=== PATIENT | female | born 1995 | race Caucasian/White ===

== ENCOUNTER 2017-02-09 22:50 | Emergency (ER) | payer BC, OTHER ==
[~2017-02-09] VITALS: Ht 149.9 cm; Wt 87.9 kg
[2017-02-09 22:50] VITALS: BP 144/83
--- NOTE | 2017-02-09 22:56 | ED.ADGEN ---
Adult General Chief Complaint Chief Complaint " I am having some back pain..." " I ve had scoliosis and surgery for it when I was 16..." HPI HPI Patient is a 21 year old female who presents with above hx and complaints continue mid back pain after fall on stairs 1 week ago. Pt., has chronic back pain from scoliosis surgery ate 16. Pt. has some dysuria. Pt. denies any fever or chills. No travel or ill contacts. No hx of immunosuppression. No hx cancer. No hx IV drug use. Review of Systems Review of Systems Constitutional: Denies fever or chills [] Eyes: Denies change in visual acuity, redness, or eye pain [] HENT: Denies nasal congestion or sore throat [] Respiratory: Denies cough or shortness of breath [] Cardiovascular: No additional information not addressed in HPI [] GI: Denies abdominal pain, nausea, vomiting, bloody stools or diarrhea [] : some dysuria Musculoskeletal:Hx chronic back pain or joint pain [] Integument: Denies rash or skin lesions [] Neurologic: Denies headache, focal weakness or sensory changes [] Endocrine: Denies polyuria or polydipsia [] All other systems were reviewed and found to be within normal limits, except as documented in this note. Family History Family History Non contributory Current Medications Current Medications Current Medications Medications (Trade) Dose Ordered Sig/[place] Start Time Stop Time Status Last Admin Dose Admin Cephalexin HCl (Keflex) 500 mg 1X ONCE 02/10/17 02:00 02/10/17 02:00 DC 02/10/17 01:43 500 MG Ketorolac Tromethamine (Toradol) 60 mg 1X ONCE 02/10/17 00:00 02/10/17 00:01 DC 02/10/17 00:14 60 MG Methylprednisolone Acetate (DEPO-Medrol IM) 40 mg 1X ONCE 02/10/17 00:00 02/10/17 00:01 DC 02/10/17 00:11 40 MG Orphenadrine Citrate (Norflex) 60 mg 1X ONCE 02/10/17 00:00 02/10/17 00:01 DC 02/10/17 00:16 60 MG Oxycodone/ Acetaminophen (Percocet 10/325) 1 tab 1X ONCE 02/10/17 00:00 02/10/17 00:01 DC 02/10/17 00:10 1 TAB See Nursing for home meds Allergies Allergies Allergies Coded Allergies Type Severity Reaction Last Updated Verified No Known Drug Allergies 02/09/17 No Physical Exam Physical Exam Constitutional: Well developed, well nourished, in moderate distress, non- toxic appearance. [] HENT: Normocephalic, atraumatic, bilateral external ears normal, oropharynx moist, no oral exudates, nose normal. [] Eyes: PERRLA, EOMI, conjunctiva normal, no discharge. [] Neck: Normal range of motion, no tenderness, supple, no stridor. [] Cardiovascular:Heart rate regular rhythm, no murmur [] Lungs & Thorax: Bilateral breath sounds equal at apexes on auscultation [] Abdomen: Bowel sounds normal, soft, no tenderness, no masses, no pulsatile masses. [] No saddle loss reported. Skin: Warm, dry, no erythema, no rash. [] Back:midline scar and flank tenderness, no CVA tenderness. [] Extremities: No tenderness, no cyanosis, no clubbing, ROM intact, no edema. [] Neurologic: Alert and oriented X 3, normal motor function, normal sensory function, no focal deficits noted. DTR +2 patella. Psychologic: Affect normal, judgement normal, mood normal. [] Current Patient Data Lab Results Laboratory Tests Test 02/09/17 23:02 02/10/17 00:33 Urine Collection Type Unknown Urine Color Yellow Urine Clarity Hazy Urine pH 6.0 Urine Specific [place] >=1.030 Urine Protein 30 mg/dl (NEG-TRACE) Urine Glucose (UA) Neg mg/dL (NEG) Urine Ketones (Stick) Trace mg/dL (NEG) Urine Blood Mod (NEG) Urine Nitrite Neg (NEG) Urine Bilirubin Neg (NEG) Urine Urobilinogen Dipstick 0.2 mg/dL (0.2 mg/dL) Urine Leukocyte Esterase Trace (NEG) Urine RBC 6-10 /HPF (0-2) Urine WBC 1-4 /HPF (0-4) Urine Squamous Epithelial Cells Many /LPF Urine Bacteria Few /HPF (0-FEW) POC Urine HCG, Qualitative hcg negative (Negative) EKG EKG [] Radiology/Procedures Radiology/Procedures My interpretation of thoracic, lumbar and sacral film shows extensive hardware. But no obvious fracture or dislocation or fracture or hardware.[] Course & Med Decision Making Course & Med Decision Making Pertinent Labs and Imaging studies reviewed. (See chart for details). Push vitamin C drinks. Take Keflex 500 x3 times a day.x7 days. Follow-up primary. re check urine. Return if any concerns. [] Final Impression Final Impression 1. Back Pain[] Acute on chronic 2. UTI Problems: Dragon Disclaimer Dragon Disclaimer This electronic medical record was generated, in whole or in part, using a voice recognition dictation system. RAY RUIZ MD Feb 09, 2017 22:56
[2017-02-10] MEDS ORDERED: methylPREDNISolone ACETATE 40 MG/ML VIAL. IM ONE
[2017-02-10] MEDS ORDERED: ORPHENADRINE CITRATE 60 MG/2 ML VIAL. IM ONE
[2017-02-10] MEDS ORDERED: oxyCODONE/APAP 10/325 1 TAB TABLET PO ONE
[2017-02-10] MEDS ORDERED: KETOROLAC 60 MG/2 ML VIAL. IM ONE
[2017-02-10 01:30] LABS: CLARITY,URINE HAZY; COLOR,URINE YELLOW
[2017-02-10 01:31] LABS: BACTERIA,URINE FEW /HPF (0-FEW); BILIRUBIN,URINE NEG (NEG); GLUCOSE,URINE NEG (NEG); NITRITE,URINE NEG (NEG); SQUAMOUS EPITHELIAL CELL,UR MANY /LPF; UROBILINOGEN,URINE 0.2 mg/dL (0.2 mg/dL)
[2017-02-10] MEDS ORDERED: CEPH-264 PO (01:38)
[2017-02-10] MEDS ORDERED: FLUC150T PO (01:38)
[2017-02-10] MEDS ORDERED: HYDR-79 PO (01:38)
[2017-02-10] MEDS ORDERED: CEPHALEXIN 250 MG CAPSULE PO ONE (02:00)
--- NOTE | 2017-02-10 07:23 | RAD ---
Indication: Back pain, fall downstairs. Technique: 3 views of the lumbosacral spine are submitted for review. No comparison is available. Findings: There is fusion within the included lower thoracic spine to the level of L3. There is no perihardware lucency. There is 6 mm of retrolisthesis at L3-L4. There is otherwise no malalignment. There is no evidence of an acute fracture, vertebral body height is maintained. There is probably minimal endplate degenerative change at L3-L4. Alignment appears markedly improved from a 2011 study. Impression: No evidence of an acute fracture or traumatic malalignment.
--- NOTE | 2017-02-10 07:25 | RAD ---
Indication: Pain after fall downstairs. Technique: 3 views of the thoracic spine are submitted for review. No comparison is available. Findings: Spinal instrumentation extends from T3 to the lumbar spine. Pedicle screws begin at T4. Hardware appears well seated. There is no perihardware lucency. Alignment appears improved from a 2011 study. There is no evidence of an acute fracture or traumatic malalignment. Impression: Extensive postsurgical change related to the patient's scoliosis. No evidence of an acute fracture or dislocation.
== END 2017-02-10 01:46 | disposition home or self-care (01) ==
LOC: ER 22:50
DX: M54.89 Other dorsalgia (principal); G89.29 Other chronic pain; N39.0 Urinary tract infection, site not specified; W10.8XXA Fall (on) (from) other stairs and steps, initial encounter; Y93.89 Activity, other specified; Y99.8 Other external cause status; Y92.89 Other specified places as the place of occurrence of the external cause
CPT/HCPCS: 72072; 72100; 81001; 81025; 87086; 96372; 99285; J1030; J1885; J2360

== ENCOUNTER 2017-02-15 15:54 | Inpatient (IN) | payer BC ==
[~2017-02-15] VITALS: Ht 149.9 cm; Wt 89.4 kg
[~2017-02-15 15:54] MED LIST: CEPH-264 PO; FLUC150T PO; HYDR-79 PO
[2017-02-15] MEDS ORDERED: ONDANSETRON PF 4 MG/2 ML VIAL. IV ONE ×2 (17:00→20:15)
[2017-02-15] MEDS ORDERED: IV NORMAL SALINE 1,000ML 1,000 ML IV SCH (17:00)
[2017-02-15 17:09] LABS: BASO # 0.1 x10^3/uL (0.0-0.2); BASO % 0 % (0-3); EOS # 0.1 x10^3/uL (0.0-0.7); EOS % 0 % (0-3); HEMATOCRIT 41.1 % (36.0-47.0); HEMOGLOBIN 13.5 g/dL (12.0-15.5); LYMPH # 0.7 x10^3/uL (1.0-4.8); LYMPH % 4 % (24-48); MEAN CORPUSCULAR HEMOGLOBIN 27 pg (25-35); MEAN CORPUSCULAR HGB CONC 33 g/dL (31-37); MEAN CORPUSCULAR VOLUME 83 fL (79-100); MONO # 0.6 x10^3/uL (0.0-1.1); MONO % 3 % (0-9); NEUT # 18.9 x10^3uL (1.8-7.7); NEUT % 93 % (31-73); PLATELET COUNT 295 x10^3/uL (140-400); RED BLOOD COUNT 4.98 x10^6/uL (3.50-5.40); RED CELL DISTRIBUTION WIDTH 14.4 % (11.5-14.5); WHITE BLOOD COUNT 20.3 x10^3/uL (4.0-11.0)
[2017-02-15 17:24] LABS: ALBUMIN 3.5 g/dL (3.4-5.0); ALBUMIN/GLOBULIN RATIO 0.8 (1.0-1.7); CALCIUM 8.5 mg/dL (8.5-10.1); CREATININE 0.6 mg/dL (0.6-1.0); GFR 128.8; POTASSIUM 3.8 mmol/L (3.5-5.1); TOTAL BILIRUBIN 0.4 mg/dL (0.2-1.0); TOTAL PROTEIN 7.8 g/dL (6.4-8.2)
--- NOTE | 2017-02-15 17:37 | RAD ---
Limited abdominal ultrasound February 15, 2017 INDICATION: Right upper quadrant abdominal pain. COMPARISON: None available TECHNIQUE: Multiple sonographic images of the right upper quadrant were obtained utilizing grayscale and color Doppler. FINDINGS: Abdominal aorta is normal in course and caliber. IVC is patent. Liver is homogeneous in echotexture without evidence for a focal mass lesion. Liver measures 15.2 cm. There is no suspicious hepatic mass. Common bile duct is normal in size measuring 3 mm. No intrahepatic or extrahepatic biliary ductal dilatation. There is hepatopedal flow within the portal venous system. There is no free fluid in the abdomen. Gallbladder is normal in appearance without evidence for gallstones, gallbladder wall thickening or pericholecystic fluid. Positive sonographic Myers sign is noted. The right kidney measures 11.9 x 4.9 x 4.4 cm. Pancreas is poorly visualized. IMPRESSION: No evidence for cholelithiasis. Positive sonographic Myers sign is nonspecific without gallstones, gallbladder wall thickening or pericholecystic fluid. Electronically signed by: Lizbeth Hightower MD (02/15/2017 5:33 PM) [facility]
--- NOTE | 2017-02-15 17:46 | PHYS DOC ---
Past History Past Medical History: No Pertinent History Past Surgical History: Other Alcohol Use: None Drug Use: None Adult General Chief Complaint Chief Complaint: ABDOMINAL PAIN HPI HPI 22-year-old male patient complaining of sudden onset of upper abdominal pain that woke her up at 12 noon as a severe and sharp pain with radiation to her back. Patient rated her pain 9/10 and complaining of a 2 episodes of nonbloody vomiting and one episode of diarrhea. Patient complaining of decrease of urine output and appetite. Patient states the pain is constant and getting worse with movement. Patient denies vaginal bleeding or discharge or chance of . Review of Systems Review of Systems Constitutional: Denies fever or chills [] Eyes: Denies change in visual acuity, redness, or eye pain [] HENT: Denies nasal congestion or sore throat [] Respiratory: Denies cough or shortness of breath [] Cardiovascular: No additional information not addressed in HPI [] GI: Reports abdominal pain, nausea, vomiting, diarrhea [] : Denies dysuria or hematuria [] Musculoskeletal: Denies back pain or joint pain [] Integument: Denies rash or skin lesions [] Neurologic: Denies headache, focal weakness or sensory changes [] Endocrine: Denies polyuria or polydipsia [] All other systems were reviewed and found to be within normal limits, except as documented in this note. Current Medications Current Medications Current Medications Medications (Trade) Dose Ordered Sig/[facility] Start Time Stop Time Status Last Admin Dose Admin Fentanyl Citrate (Fentanyl 2ml Vial) 50 mcg 1X ONCE 02/15/17 17:45 02/15/17 17:46 Ondansetron HCl (Zofran) 4 mg 1X ONCE 02/15/17 17:00 02/15/17 17:01 DC 02/15/17 17:04 4 MG Sodium Chloride 1,000 ml @ 1,000 mls/hr Q1H 02/15/17 17:00 02/15/17 17:59 02/15/17 17:04 1,000 MLS/HR Allergies Allergies Allergies Coded Allergies Type Severity Reaction Last Updated Verified No Known Drug Allergies 02/09/17 No Physical Exam Physical Exam Constitutional: Well developed, well nourished, moderate distress, non-toxic appearance. [] HENT: Normocephalic, atraumatic, bilateral external ears normal, oropharynx moist, no oral exudates, nose normal. [] Eyes: PERRLA, EOMI, conjunctiva normal, no discharge. [] Neck: Normal range of motion, no tenderness, supple, no stridor. [] Cardiovascular:Heart rate regular rhythm, no murmur [] Lungs & Thorax: Bilateral breath sounds clear to auscultation [] Abdomen: Bowel sounds normal, soft, right upper and right lower quadrant tenderness, no masses, no pulsatile masses. [] Skin: Warm, dry, no erythema, no rash. [] Back: No tenderness, no CVA tenderness. [] Extremities: No tenderness, no cyanosis, no clubbing, ROM intact, no edema. [] Neurologic: Alert and oriented X 3, normal motor function, normal sensory function, no focal deficits noted. [] Psychologic: Affect normal, judgement normal, mood normal. [] Current Patient Data Vital Signs Vital Signs Date Time Temp Pulse Resp B/P (MAP) Pulse Ox O2 Delivery O2 Flow Rate FiO2 02/15/17 16:10 98.3 124 20 97 Room Air Lab Results Laboratory Tests Test 02/15/17 16:00 02/15/17 16:54 White Blood Count 20.3 x10^3/uL (4.0-11.0) H Red Blood Count 4.98 x10^6/uL (3.50-5.40) Hemoglobin 13.5 g/dL (12.0-15.5) Hematocrit 41.1 % (36.0-47.0) Mean Corpuscular Volume 83 fL (79-100) Mean Corpuscular Hemoglobin 27 pg (25-35) Mean Corpuscular Hemoglobin Concent 33 g/dL (31-37) Red Cell Distribution Width 14.4 % (11.5-14.5) Platelet Count 295 x10^3/uL (140-400) Neutrophils (%) (Auto) 93 % (31-73) H Lymphocytes (%) (Auto) 4 % (24-48) L Monocytes (%) (Auto) 3 % (0-9) Eosinophils (%) (Auto) 0 % (0-3) Basophils (%) (Auto) 0 % (0-3) Neutrophils # (Auto) 18.9 x10^3uL (1.8-7.7) H Lymphocytes # (Auto) 0.7 x10^3/uL (1.0-4.8) L Monocytes # (Auto) 0.6 x10^3/uL (0.0-1.1) Eosinophils # (Auto) 0.1 x10^3/uL (0.0-0.7) Basophils # (Auto) 0.1 x10^3/uL (0.0-0.2) Platelet Estimate Pending Sodium Level 139 mmol/L (136-145) Potassium Level 3.8 mmol/L (3.5-5.1) Chloride Level 105 mmol/L (98-107) Carbon Dioxide Level 22 mmol/L (21-32) Anion Gap 12 (6-14) Blood Urea Nitrogen 11 mg/dL (7-20) Creatinine 0.6 mg/dL (0.6-1.0) Estimated GFR (Cockcroft-Gault) 128.8 BUN/Creatinine Ratio 18 (6-20) Glucose Level 99 mg/dL (70-99) Calcium Level 8.5 mg/dL (8.5-10.1) Total Bilirubin 0.4 mg/dL (0.2-1.0) Aspartate Amino Transferase (AST) 14 U/L (15-37) L Alanine Aminotransferase (ALT) 19 U/L (14-59) Alkaline Phosphatase 106 U/L (46-116) Total Protein 7.8 g/dL (6.4-8.2) Albumin 3.5 g/dL (3.4-5.0) Albumin/Globulin Ratio 0.8 (1.0-1.7) L Lipase 95 U/L (73-393) EKG EKG [] Radiology/Procedures Radiology/Procedures [] Course & Med Decision Making Course & Med Decision Making Pertinent Labs and Imaging studies reviewed. (See chart for details) Evaluation of patient in ER showed 21-year-old female patient presented with nausea and vomiting and abdominal pain area patient had right upper and right quadrant pain and tenderness with white count of 20,000. Ultrasound was unremarkable. Plan to obtain CT of abdomen and pelvis for evaluation of appendicitis. She care transferred to at 1800. [] Dragon Disclaimer Dragon Disclaimer This electronic medical record was generated, in whole or in part, using a voice recognition dictation system. Departure Departure: Impression: Primary Impression: SIRS (systemic inflammatory response syndrome) Additional Impression: Back pain Referrals: LEONARD OZUNA (PCP) Problem Qualifiers LISS VAUGHN MD Feb 15, 2017 17:46
[2017-02-15 18:05] LABS: BACTERIA,URINE 0 /HPF (0-FEW); BILIRUBIN,URINE NEG (NEG); CLARITY,URINE CLOUDY; COLOR,URINE YELLOW; GLUCOSE,URINE NEG (NEG); NITRITE,URINE NEG (NEG); UROBILINOGEN,URINE 0.2 mg/dL (0.2 mg/dL)
[2017-02-15 18:06] LABS: SQUAMOUS EPITHELIAL CELL,UR FEW /LPF
[2017-02-15] MEDS ORDERED: IOHEXOL 300 MG/ML 75 ML VIAL. IV ONE (18:15)
[2017-02-15] MEDS ORDERED: IOHEXOL 240 MG/ML 50ML VIAL. PO ONE (18:15)
[2017-02-15 18:37] LABS: U PREG PATIENT NEGATIVE (NEG)
[2017-02-15] MEDS ORDERED: IV NORMAL SALINE 50ML 50 ML ONE (20:39)
[2017-02-15] MEDS ORDERED: cefTRIAXone SODIUM 1 GM VIAL IV ONE (20:39)
[2017-02-15] MEDS ORDERED: MORPHINE SULFATE 4 MG/ML DISP.SYRIN. IV PRN (21:15)
[2017-02-15] MEDS ORDERED: ACETAMINOPHEN 325 MG TABLET PO PRN (21:15)
[2017-02-15 21:45] LABS: % BANDS 1 % (0-9); % LYMPHS 4 % (24-48); % SEGS 95 % (35-66)
[2017-02-15 21:47] LABS: PLT ESTIMATE ADEQUATE (ADEQUATE)
[2017-02-15 22:03] VITALS: BP 110/77
[2017-02-15] MEDS: IV NORMAL SALINE 1,000ML 1,000 ML IV SCH (22:31)
--- NOTE | 2017-02-15 22:35 | RAD ---
PQRS Compliance Statement: One or more of the following individualized dose reduction techniques were utilized for this examination: 1. Automated exposure control 2. Adjustment of the mA and/or kV according to patient size 3. Use of iterative reconstruction technique CT abdomen/pelvis with IV contrast 02/15/2017 INDICATION: Abdominal pain, leukocytosis. Nausea and vomiting. COMPARISON: None available TECHNIQUE: Multiple axial CT images of the abdomen and pelvis were obtained after the intravenous administration of 75 cc Omnipaque 300. Coronal and sagittal reformats are provided. FINDINGS: Lung bases are clear. Heart size is within normal limits. Liver, spleen, bilateral adrenal glands, pancreas and gallbladder are normal in appearance. Aorta is normal in course and caliber. There are no pathologically enlarged lymph nodes in abdomen or pelvis. There is no evidence for free intracranial air. Kidneys are normal in appearance. 6 monitor hypodense lesion in the superior pole the left kidney likely represent simple cyst. Small large bowel are normal in caliber. Appendix is normal in appearance. No pericolonic inflammatory changes are identified. Posterior lumbar fixation hardware is identified from T8 through L4. Bilateral pedicle screws are identified from T10 through L4. Right-sided pedicle screws are identified at T8 and T9. Dual rods with a crossmember are noted. Mild levoconvex curvature of the critical lumbar spine is noted. No suspicious pelvic mass is identified. Follicular changes are noted in the adnexa bilaterally. Crenulated cyst in the left adnexa may represent a hemorrhagic cyst measuring 1.7 cm. IMPRESSION: 1. No acute abnormality is identified in the abdomen or pelvis. 2. Crenulated cyst in the left adnexa may represent a hemorrhagic cyst measuring 1.7 cm. No significant free fluid in the pelvis. 3. Normal-appearing appendix. Electronically signed by: Lizbeth Hightoewr MD (02/15/2017 10:32 PM) [facility]
[2017-02-15] MEDS: ONDANSETRON PF 4 MG/2 ML VIAL. IV PRN (22:36)
[2017-02-15] MEDS: MORPHINE SULFATE 4 MG/ML DISP.SYRIN. IV PRN (22:36)
[2017-02-16 03:15] VITALS: BP 102/50
[2017-02-16] MEDS: ONDANSETRON PF 4 MG/2 ML VIAL. IV PRN ×3 (03:17→21:14)
--- NOTE | 2017-02-16 05:09 | PHYS DOC ---
Departure Departure: Impression: Primary Impression: SIRS (systemic inflammatory response syndrome) Additional Impressions: Back pain Urinary tract infection Leukocytosis Abdominal pain Nausea vomiting and diarrhea Dehydration Disposition: ADMITTED INPATIENT Admitting Physician: Angelina Andres Condition: STABLE (please see general adult for for my addendum for full H&P by ) Referrals: LEONARD OZUNA (PCP) Problem Qualifiers ROCÍO JACKSON MD Feb 16, 2017 05:09
[2017-02-16] MEDS: MORPHINE SULFATE 4 MG/ML DISP.SYRIN. IV PRN ×3 (05:13→14:13)
[2017-02-16] MEDS: IV NORMAL SALINE 1,000ML 1,000 ML IV SCH ×2 (05:14→12:30)
[2017-02-16 05:45] VITALS: BP 107/51
[2017-02-16 06:51] LABS: BASO # 0.1 x10^3/uL (0.0-0.2); BASO % 1 % (0-3); EOS % 0 % (0-3); HEMATOCRIT 34.3 % (36.0-47.0); HEMOGLOBIN 11.3 g/dL (12.0-15.5); LYMPH # 1.1 x10^3/uL (1.0-4.8); LYMPH % 9 % (24-48); MEAN CORPUSCULAR HEMOGLOBIN 27 pg (25-35); MEAN CORPUSCULAR HGB CONC 33 g/dL (31-37); MEAN CORPUSCULAR VOLUME 83 fL (79-100); MONO # 0.6 x10^3/uL (0.0-1.1); MONO % 5 % (0-9); NEUT # 10.6 x10^3uL (1.8-7.7); NEUT % 86 % (31-73); PLATELET COUNT 210 x10^3/uL (140-400); RED BLOOD COUNT 4.15 x10^6/uL (3.50-5.40); RED CELL DISTRIBUTION WIDTH 14.3 % (11.5-14.5); WHITE BLOOD COUNT 12.4 x10^3/uL (4.0-11.0)
[2017-02-16 07:29] LABS: ALBUMIN 2.7 g/dL (3.4-5.0); ALBUMIN/GLOBULIN RATIO 0.8 (1.0-1.7); CALCIUM 7.7 mg/dL (8.5-10.1); CREATININE 0.7 mg/dL (0.6-1.0); GFR 107.8; POTASSIUM 3.2 mmol/L (3.5-5.1); TOTAL BILIRUBIN 0.3 mg/dL (0.2-1.0); TOTAL PROTEIN 6.3 g/dL (6.4-8.2)
[2017-02-16 10:45] VITALS: BP 97/67
[2017-02-16 14:44] VITALS: BP 103/65
--- NOTE | 2017-02-16 16:19 | HP ---
ADMIT DATE: 02/15/2017 HISTORY OF PRESENT ILLNESS: The patient on medication held his 21-year-old female patient who apparently came to the Emergency Room complaining of sudden onset of upper abdominal pain that woke her up at 12:00 noon with severe sharp pain that radiates to her back. The patient rated her pain as 9/10 and complaining of 2 episodes of nonbloody vomiting and 1 episode of diarrhea. She also complained of decreased urine output and her appetite. The pain is constant and getting worse with movement. She denied any dysuria, frequency or hematuria. Denied any vaginal discharge or a chance of . She was extensively investigated in the Emergency Room and her white cell count was extremely high at 20,000. Her lactic acid was only 1.4. However, she has had ultrasound of the abdomen, which showed no evidence of cholelithiasis or cholecystitis; however, positive sonographic Myers sign and nonspecific without gallstone, gallbladder wall thickening or pericholecystic fluid. CT scan of the abdomen was also unremarkable except for hemorrhagic cyst measuring 1.7 cm. No significant free fluid in the pelvis. The patient was admitted. Continue IV fluid and was given IV Rocephin and to monitor and further evaluate her presentation. PAST MEDICAL HISTORY: Unremarkable. PAST SURGICAL HISTORY: Back surgery when she was 16 years old. ALLERGIES: She has no known drug allergies. MEDICATIONS: Apparently, she was seen in the Emergency Room about a week ago and was started on Keflex and hydrocodone. She has not finished yet the course of antibiotic. FAMILY HISTORY: She has 1 brother who is older and healthy. Mother is healthy. Father is alive and has diabetes and hypertension. SOCIAL HISTORY: She is single, has no children. She does not smoke, drink alcohol or recreational drugs. 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 REVIEW OF SYSTEMS: The patient denied any blurring of vision, cataract, glaucoma or macular degeneration. Denied any earache, tinnitus or sensorineural deafness. Denied any nosebleeds, stuffy nose or postnasal drip. Denied any sore throat, sore tongue, toothache, hoarseness of voice or difficulty swallowing. She did have nausea and vomiting about 8-9 times, has only 2 episodes of diarrhea prior to admission. Denied any hematemesis, melena or hematochezia. Denied any dysuria, frequency or hematuria. Denied any chest pain, shortness of breath, orthopnea or paroxysmal nocturnal dyspnea. Denied any cough, phlegm or hemoptysis. Did complain of fever, but no chills or rigors. PHYSICAL EXAMINATION: GENERAL: On examining her on arrival, she looked slightly pale, but no jaundice, cyanosis, or thyromegaly. No jugular venous distention. No lower limb edema. VITAL SIGNS: Her heart rate was 124, blood pressure was 108/64, temperature was 98.3, respiratory rate 20, and oxygen saturation was 97% on room air. HEAD: Showed normocephalic, atraumatic. NECK: Supple. HEART: Showed normal first and second heart sounds with no gallop, rub or murmur. CHEST: Clear to auscultation. No crepitation or rhonchi. ABDOMEN: Distended with some tenderness mostly in the epigastric and right upper quadrant. There is no guarding or rigidity. No organomegaly. Hernial orifice intact. Bowel sounds normal. NEUROLOGICAL: She is awake, alert, responding appropriately. Cranial nerves intact. EXTREMITIES: She moves extremities without difficulty. She ambulates without assistance or assistive devices. LABORATORY DATA: Showed a white cell count of 20,300; hemoglobin 13.5; hematocrit 41; MCV 83; and platelet count 295,000 with a manual differential showed 93% polymorphs, 4% lymphocytes and 3% monocytes. Her chemistry showed a serum sodium 139, potassium 3.8, chloride 105, bicarbonate 22, anion gap of 12, BUN 11, creatinine 0.6, estimated GFR was 126 mL per minute. Her glucose was 99, lactic acid 1.4, calcium was 8.5. Total bilirubin, AST, ALT, alkaline phosphatase were normal. Total protein was 7.5, albumin was 3.5 and lipase was 95. Urinalysis showed the urine was yellow, cloudy with a pH of 6, specific gravity of 1.020. There was small amount of protein and negative for glucose, blood, nitrite and small amount of leukocyte esterase. There are 1-2 rbc's, 5-10 wbc's, no bacteria. Her urine test was negative and as I stated her ultrasound report showed no evidence of cholelithiasis, positive sonographic Myers sign is nonspecific without gallstones, gallbladder wall thickening or pericholecystic fluid. The CT scan of the abdomen and pelvis was unremarkable. ASSESSMENT AND PLAN: The patient was admitted with sepsis, leukocytosis and right upper quadrant pain, the cause of which is not very clear. We will continue with IV antibiotic, IV fluid and pain management and repeat all her lab work, decide on further management accordingly. NOELLE HONG MD DR: SJ/cristina JOB#: [id number] / [id number]
[2017-02-16] MEDS: PIPERACILLIN/TAZOBACTAM 3.375 GM in IV NORMAL SALINE 50ML 50 ML IV SCH (18:02)
[2017-02-16 19:50] VITALS: BP 108/69
[2017-02-16] MEDS: LACTOBACILLUS RHAMNOSUS GG 1 CAPSULE. PO SCH (21:14)
[2017-02-16] MEDS: POTASSIUM CL 40MEQ IN 0.9%NACL 1,000 ML IV SCH (21:15)
[2017-02-16 23:07] VITALS: BP 101/71
[2017-02-17] MEDS: PIPERACILLIN/TAZOBACTAM 3.375 GM in IV NORMAL SALINE 50ML 50 ML IV SCH ×3 (00:02→12:20)
[2017-02-17] MEDS: POTASSIUM CL 40MEQ IN 0.9%NACL 1,000 ML IV SCH ×2 (01:45→05:03)
[2017-02-17] MEDS ORDERED: ONDANSETRON PF 4 MG/2 ML VIAL. IV PRN (05:15)
[2017-02-17 05:17] VITALS: BP 107/73
[2017-02-17 07:19] LABS: HEMATOCRIT 36.6 % (36.0-47.0); HEMOGLOBIN 12.3 g/dL (12.0-15.5); RED BLOOD COUNT 4.41 x10^6/uL (3.50-5.40); RED CELL DISTRIBUTION WIDTH 14.3 % (11.5-14.5); WHITE BLOOD COUNT 10.4 x10^3/uL (4.0-11.0)
[2017-02-17 07:23] LABS: ALBUMIN 2.8 g/dL (3.4-5.0); ALBUMIN/GLOBULIN RATIO 0.7 (1.0-1.7); C REACTIVE PROTEIN 32.5 mg/L (0-3.3); CALCIUM 8.2 mg/dL (8.5-10.1); CREATININE 0.7 mg/dL (0.6-1.0); GFR 107.8; POTASSIUM 4.1 mmol/L (3.5-5.1); TOTAL BILIRUBIN 0.4 mg/dL (0.2-1.0); TOTAL PROTEIN 6.6 g/dL (6.4-8.2)
[2017-02-17] MEDS ORDERED: SINCALIDE IV ONE (11:00)
[2017-02-17] MEDS ORDERED: NORMAL SALINE IV ONE (11:00)
[2017-02-17] MEDS: LACTOBACILLUS RHAMNOSUS GG 1 CAPSULE. PO SCH (12:19)
--- NOTE | 2017-02-17 13:51 | RAD ---
Hepatobiliary scan with gallbladder ejection fraction 02/17/2017. Clinical History: Epigastric pain with nausea and vomiting for 3 days.. Technique: After the intravenous administration of 5.5 mCi of Technetium 99m Choletec, imaging of the right upper quadrant of the abdomen was performed using the gamma camera for 60 minutes. 1.8 mcg of CCK was then infused intravenously over 30 minutes. Continued imaging of the right upper quadrant abdomen was performed. A gallbladder ejection fraction was calculated. Findings: Normal uptake and excretion of the radionuclide by the liver is seen. There is no evidence of cystic or common bile duct obstruction. The gallbladder is slightly contracted.. During the infusion of CCK minimal emptying of the gallbladder is seen on the static images. The gallbladder ejection fraction is 0.5% which is markedly diminished. These findings are consistent with biliary dyskinesia. Impression: Findings consistent with biliary dyskinesia.
[2017-02-17 14:49] VITALS: BP 137/95
--- NOTE | 2017-02-17 21:02 | DS ---
DATE OF DISCHARGE: 02/17/2017 HISTORY OF PRESENT ILLNESS: The patient is a 21-year-old female patient who was admitted with a complaint of sudden onset of upper abdominal pain that woke her up at 12:00 noon with severe sharp pain and it radiated to her back. The patient states pain is a 9/10 complaining of episodes of nonbloody vomiting, 1 episode of diarrhea. She also complained of decrease urine output and her appetite. Pain is constant, getting worse with movement. She denied any dysuria, frequency or hematuria. Denied any vaginal discharge or chance of being . She was extensively investigated in the Emergency Room. Her white cell count was found to be elevated at 20,000. Her lactic acid was only 1.4. However, she has had ultrasound of the abdomen, which showed no evidence of cholelithiasis or acute cholecystitis; however, was the sonographic Myers sign that is nonspecific without gallstones, gallbladder wall thickening or pericholecystic fluid. CT scan of the abdomen was also unremarkable except for hemorrhagic cyst measuring 1.7 cm with no significant free fluid in the pelvis. HOSPITAL COURSE: The patient was admitted and continued on IV fluid. I actually broaden her antibiotics to Zosyn. Fortunately, she continued to the complaint of severe pain and anorexia and has not been able to tolerate any food and therefore we arranged for her to have a hepatobiliary scan, which was done this morning and it did show that the patient has normal uptake and excretion of the radionuclide by the liver is seen. There is no evidence of cystic or common bile duct obstruction. The gallbladder is slightly contracted during the infusion of cholecystokinin. Minimal emptying of the gallbladder is seen in the static images. The gallbladder ejection fraction was 0.5%, which is markedly diminished and these findings are consistent with biliary dyskinesia. I did speak with Dr. Ramos who recommended transferring the patient to [facility] for laparoscopic cholecystectomy. When I saw her this afternoon, she was resting slightly propped up in bed, in no apparent respiratory distress, slightly pale, but no jaundice, cyanosis, or thyromegaly. No jugular venous distension. No limb edema. PHYSICAL EXAMINATION: VITAL SIGNS: Her heart rate was 92, blood pressure was 107/73, temperature was 97.6, respiratory rate was 18 and oxygen saturation was 98%. HEAD, EYES, EARS, NOSE AND THROAT: Normocephalic, atraumatic. NECK: Supple. HEART: Showed normal first and second heart sounds with no gallop, rub or murmur. CHEST: Clear to auscultation. No crepitation or rhonchi. ABDOMEN: Distended, soft, nontender. No guarding or rigidity. No organomegaly. Hernial orifice intact. Bowel sounds normal. NEUROLOGIC: She was sleepy, but arousable. All cranial nerves intact. She moves extremities without difficulty. Her intake was 2700 and output was recorded. LABORATORY DATA: Her lab work this morning showed a serum sodium 136, potassium 4.1, chloride 103, bicarbonate 23, anion gap of 10, BUN 5, creatinine 0.7, estimated GFR was 107 mL per minute. Her glucose was 68, calcium was 8.2. Total bilirubin, AST, ALT, alkaline phosphatase were normal. Total protein was 6.6, albumin 2.8. Serum lipase was 97. C-reactive protein was 32.5 mg/dL. Her white cell count was 10,400, hemoglobin 12, hematocrit 36, MCV 83 and platelet count of 142,000. Her sedimentation rate was 20 mL/minute per hour. Urine culture was negative. She has 2 sets of blood cultures that were negative and her urine culture showed mixed urogenital grabiel. In summary, this is a 21-year-old female patient who came with severe right upper quadrant abdominal pain that radiated over to the back. The sonographic Myers sign was positive. The abdominal ultrasound and CT scan was unremarkable with gallbladder wall thickening or pericholecystic fluid or gallstones; however, the hepatobiliary scan showed that she has severe biliary dyskinesia. The patient will be transferred to [facility] for laparoscopic cholecystectomy tonight or tomorrow. NOELLE HONG MD DR: SJ/cristina JOB#: [id number] / [id number]
== END 2017-02-17 15:00 | disposition short-term general hospital (02) | DRG 872 ==
LOC: ER 15:54 → 1 SOUTH 21:03
PROVIDERS: ADMIT Internal Medicine; ATTEND Internal Medicine
DX: A41.9 Sepsis, unspecified organism (principal); E86.0 Dehydration; N39.0 Urinary tract infection, site not specified; K82.8 Other specified diseases of gallbladder; M54.9 Dorsalgia, unspecified; Z82.49 Family history of ischemic heart disease and other diseases of the circulatory system; Z83.3 Family history of diabetes mellitus
CPT/HCPCS: 36415; 74177; 76705; 78226; 80053; 81001; 81025; 83605; 83690; 85007; 85025; 85027; 85651; 86140; 87040; 87086; 96361; 96365; 96372; 96374; 96375; 96376; A9537; J0696; J2270; J2405; J2543; J2805; J3010; Q9966; Q9967; 99285-25; J7030

== ENCOUNTER → 2019-01-17 | Outpatient (CLI) | payer BC ==
[~2019-01-17] MED LIST changes: +HYDR-1179 PO; -HYDR-79 PO
--- NOTE | 2019-01-17 10:18 | RAD ---
EXAM: Pelvic sonogram. HISTORY: Dysfunctional uterine bleeding. TECHNIQUE: Transabdominal and transvaginal sonographic imaging of the pelvis was performed. COMPARISON: None. FINDINGS: The uterus measures 7.6 x 3.7 x 4.3 cm. The endometrial stripe measures 5 mm in thickness. The ovaries are normal in size and demonstrate normal blood flow. There is small antral follicles within both ovaries. There is no pelvic free fluid. IMPRESSION: Unremarkable pelvic sonogram. Electronically signed by: Ashley Johnson MD (01/17/2019 10:15 AM) [place] [id number]
== END | disposition home or self-care (01) ==
LOC: PMG 08:21
PROVIDERS: ATTEND Physician Assistant Medical
DX: N83.8 Other noninflammatory disorders of ovary, fallopian tube and broad ligament (principal)
CPT/HCPCS: 76830; 76856